=== PATIENT | male | born 1975 | race Caucasian/White ===

== ENCOUNTER 2017-03-23 19:30 | Emergency (ER) | payer SELFPAY ==
[2017-03-23] MEDS ORDERED: Ibuprofen 800 MG TAB ONE (19:40)
--- NOTE | 2017-03-23 20:15 | RAD ---
PA AND LATERAL CHEST: 03/23/17 HISTORY: Cough and fever. Heart size and mediastinum are within normal limits. The lungs are clear of infiltrates. No significa nt bony findings. IMPRESSION: No active intrathoracic disease. POS: [facility]
[2017-03-23 21:53] LABS: ALT (SGPT) 91 U/L (8-55); AST (SGOT) 91 U/L (5-34); Alkaline Phosphatase 60 U/L (40-150); Anion Gap 17 mmol/L (10-20); BUN (Urea Nitrogen) 14 mg/dL (8.9-20.6); Bilirubin, Total 0.7 mg/dL (0.2-1.2); Calc. Creatinine Clearance 0 mL/min (70-130); Calcium 9.5 mg/dL (7.8-10.44); Carbon Dioxide 22 mmol/L (22-29); Chloride 100 mmol/L (98-107); Estimated GFR-MDRD 80; Globulin 3.3 g/dL (2.4-3.5); Glucose 99 mg/dL (70-105); Potassium 3.9 mmol/L (3.5-5.1); Protein, Total 7.3 g/dL (6.0-8.3); Sodium 135 mmol/L (136-145)
[2017-03-23 21:59] LABS: #Lymphocytes 0.4 thou/uL (1.20-3.40); #Monocytes 0.5 thou/uL (0.11-0.59); #Neutrophils 3.1 thou/uL (1.40-6.50); %Basophils 0.6 % (0.0-1.0); %Eosinophils 0.1 % (0.0-10.0); %Monocytes 12.9 % (0.0-10.0); %Neutrophils 76.4 % (42.0-75.0); Hemoglobin 15.5 g/dL (14.0-18.0); MDiff Complete? YES; Macrocytosis SLIGHT = 6-15 cells (100X) (0-5/hpf); Mean Corpuscular HGB CONC 33.8 g/dL (32.0-36.0); Mean Corpuscular Hemoglobin 34.2 pg (27.0-31.0); Mean Platelet Volume 7.3 fL (7.4-10.4); PLT Morphology Comment Appears Decreased; Platelet Count 99 thou/uL (130-400); RBC Distribution Width 11.4 % (11.5-14.5); Red Blood Cell (RBC) Count 4.52 mill/uL (4.70-6.10)
== END 2017-03-24 00:03 | disposition home or self-care (01) ==
LOC: ERS 19:30
DX: J06.9 Acute upper respiratory infection, unspecified (principal); J45.909 Unspecified asthma, uncomplicated; F17.210 Nicotine dependence, cigarettes, uncomplicated; Z71.6 Tobacco abuse counseling
CPT/HCPCS: 71046; 80053; 85025; 94760; 96360; 99406

== ENCOUNTER 2021-03-13 13:29 | Outpatient (CLI) | payer OTHER | END 2021-03-13 13:30 | disposition home or self-care (01) | LOC: SCSRAD 13:29 | PROVIDERS: ATTEND Family Medicine | DX: R05.9 Cough, unspecified (principal) | CPT/HCPCS: 71046 ==

== ENCOUNTER 2024-09-24 09:32 | Inpatient (IN) | payer OTHER ==
[2024-09-24 11:10] LABS: #Basophils 0.06 10x3/uL (0.0-0.2); #Eosinophils 0.03 10x3/uL (0.0-0.7); #Monocytes 0.50 10x3/uL (0.11-0.59); #Neutrophils 4.61 10x3/uL (1.40-6.50); %Basophils 1.0 % (0.0-1.0); %Eosinophils 0.5 % (0.0-10.0); %Lymphocytes 14.5 % (21.0-51.0); %Monocytes 8.2 % (0.0-10.0); %Neutrophils 75.3 % (42.0-75.0); Hematocrit 46.6 % (42.0-52.0); Hemoglobin 15.8 g/dL (14.0-18.0); Mean Corpuscular Hemoglobin 32.2 pg (27.0-31.0); Mean Corpuscular Volume 95.1 fL (78.0-98.0); Platelet Count 60 10x3/uL (130-400); Red Blood Cell (RBC) Count 4.90 mill/uL (4.70-6.10); White Blood Cell (WBC) Count 6.12 10x3/uL (4.8-10.8)
[2024-09-24 11:15] LABS: ALT (SGPT) 80 U/L (Less than 45); AST (SGOT) 190 U/L (11-34); Albumin 3.1 g/dL (3.1-4.5); Alkaline Phosphatase 106 U/L (40-110); Anion Gap 16 mmol/L (10-20); BUN (Urea Nitrogen) 9 mg/dL (8.9-20.6); Bilirubin, Total 1.3 mg/dL (0.3-1.2); Calc. Creatinine Clearance 0 mL/min (70-130); Calcium 8.3 mg/dL (7.8-10.44); Carbon Dioxide 26 mmol/L (22-29); Chloride 95 mmol/L (98-107); Globulin 4.3 g/dL (2.4-3.5); Glucose 88 mg/dL (70-105); Potassium 4.3 mmol/L (3.5-5.1); Sodium 133 mmol/L (136-145)
[2024-09-24 11:36] LABS: Platelet Adequacy Comment Platelets Decreased
[2024-09-24 11:48] LABS: INR-International Normal Ratio 1.1; Lipase 109 U/L (8-78); Magnesium 1.5 mg/dL (1.6-2.6); Prothrombin Time 13.8 sec (12.0-14.7)
[2024-09-24 11:49] LABS: PTT 27.3 sec (22.9-36.1)
[2024-09-24] MEDS ORDERED: Pantoprazole 80 MG, Admixture Fee 1 EACH in Sodium Chloride 0.9% 100 ML IVPB SCH ×2 (12:00→15:25)
[2024-09-24] MEDS ORDERED: Octreotide Acetate 1,250 MCG in Sodium Chloride 0.9% 250 ML 250 ML IVPB SCH (12:00)
[2024-09-24] MEDS ORDERED: Iopamidol-370 76% 500 ML MDV (1 ML CHARGE) ONE (12:03)
[2024-09-24] MEDS ORDERED: Ondansetron PF 4 MG/2 ML Vial ONE (12:46)
[2024-09-24] MEDS ORDERED: Pantoprazole 40 MG VIAL ONE (12:47)
[2024-09-24] MEDS ORDERED: Magnesium 2 GM/50 ML BAG (IN WATER) ONE (12:47)
[2024-09-24] MEDS ORDERED: cefTRIAXone (ROCEPHIN) 2 GM VIAL ONE (12:47)
[2024-09-24] MEDS ORDERED: Octreotide Acetate 1,000 mcg/ml MDV ONE (14:18)
[2024-09-24] MEDS ORDERED: Sodium Chloride 0.9% 250 ML BAG (BAXTER) ONE (14:18)
[2024-09-24] MEDS ORDERED: Ondansetron PF 4 MG/2 ML Vial IVP PRN (15:20)
[2024-09-24] MEDS ORDERED: Electrolyte Replacement Protocol 1 EACH FS SCH (15:30)
[2024-09-24 19:25] LABS: Bacteria/HPF None Seen HPF (None Seen); CAUTI Indications for Culture Dysuria,urgency,freq; Glucose, Urine (Dipstick) Normal (Negative); Leukocyte Negative Leu/uL (Negative); Protein, Urine (Dipstick) Negative (Neg-Trace); RBC/HPF None Seen HPF (0-3); Specific Gravity, Urine 1.038 (1.002-1.036); WBC/HPF 0-3 HPF (0-3)
[2024-09-24 19:38] LABS: Urine Culture Reflex No No
[2024-09-24] MEDS: Pantoprazole 40 MG DR.TAB PO SCH (22:00)
[2024-09-24 22:14] VITALS: BMI 25.4
[2024-09-25 01:26] LABS: Cocaine Metabolite Screen Negative (Negative); THC/Cannabinoid Screen Negative (Negative); Tricyclic Screen Negative (Negative)
[2024-09-25] MEDS: hydrALAZINE 20 MG/ML VIAL SLOW IVP PRN (04:53)
[2024-09-25 04:55] VITALS: BP 157/103
[2024-09-25 05:15] LABS: #Basophils Less than 0.03 10x3/uL (0.0-0.2); #Eosinophils 0.10 10x3/uL (0.0-0.7); #Monocytes 0.21 10x3/uL (0.11-0.59); #Neutrophils 1.98 10x3/uL (1.40-6.50); %Basophils 0.7 % (0.0-1.0); %Eosinophils 3.6 % (0.0-10.0); %Lymphocytes 16.2 % (21.0-51.0); %Monocytes 7.6 % (0.0-10.0); %Neutrophils 71.5 % (42.0-75.0); Hematocrit 41.9 % (42.0-52.0); Hemoglobin 14.2 g/dL (14.0-18.0); Mean Corpuscular Hemoglobin 31.8 pg (27.0-31.0); Mean Corpuscular Volume 93.9 fL (78.0-98.0); Platelet Count 45 10x3/uL (130-400); Red Blood Cell (RBC) Count 4.46 mill/uL (4.70-6.10); White Blood Cell (WBC) Count 2.77 10x3/uL (4.8-10.8)
[2024-09-25 05:25] LABS: Anion Gap 15 mmol/L (10-20); BUN (Urea Nitrogen) 6 mg/dL (8.9-20.6); Calc. Creatinine Clearance 180 mL/min (70-130); Calcium 8.1 mg/dL (7.8-10.44); Carbon Dioxide 28 mmol/L (22-29); Chloride 95 mmol/L (98-107); Glucose 115 mg/dL (70-105); Magnesium 1.5 mg/dL (1.6-2.6); Potassium 4.2 mmol/L (3.5-5.1); Sodium 134 mmol/L (136-145)
[2024-09-25] MEDS: Magnesium 2 GM/50 ML(in water) 2 GM in Premix 1 BAG IVPB SCH (06:35)
[2024-09-25] MEDS: Multivit, Therapeutic 1 TAB PO SCH (08:52)
[2024-09-25] MEDS: Folic Acid 1 MG TAB PO SCH (08:52)
[2024-09-25] MEDS: Mupirocin 1 GM TUBE TP SCH (08:52)
[2024-09-25 08:57] LABS: Lipase 84 U/L (8-78)
[2024-09-25 08:59] LABS: ALT (SGPT) 67 U/L (Less than 45); AST (SGOT) 166 U/L (11-34); Albumin 2.8 g/dL (3.1-4.5); Alkaline Phosphatase 93 U/L (40-110); Bilirubin, Direct 0.9 mg/dL (0.1-0.3); Bilirubin, Total 1.6 mg/dL (0.3-1.2)
[2024-09-25] MEDS: Acetaminophen 325 MG TAB PO PRN (13:32)
[2024-09-26 05:40] LABS: #Basophils Less than 0.03 10x3/uL (0.0-0.2); #Eosinophils 0.06 10x3/uL (0.0-0.7); #Monocytes 0.37 10x3/uL (0.11-0.59); #Neutrophils 2.18 10x3/uL (1.40-6.50); %Basophils 0.6 % (0.0-1.0); %Eosinophils 1.8 % (0.0-10.0); %Lymphocytes 22.6 % (21.0-51.0); %Monocytes 10.9 % (0.0-10.0); %Neutrophils 63.8 % (42.0-75.0); Hematocrit 39.1 % (42.0-52.0); Hemoglobin 13.5 g/dL (14.0-18.0); Mean Corpuscular Hemoglobin 31.8 pg (27.0-31.0); Mean Corpuscular Volume 92.2 fL (78.0-98.0); Platelet Count 50 10x3/uL (130-400); Red Blood Cell (RBC) Count 4.24 mill/uL (4.70-6.10); White Blood Cell (WBC) Count 3.41 10x3/uL (4.8-10.8)
[2024-09-26 05:48] LABS: ALT (SGPT) 68 U/L (Less than 45); AST (SGOT) 158 U/L (11-34); Albumin 2.7 g/dL (3.1-4.5); Alkaline Phosphatase 104 U/L (40-110); Anion Gap 11 mmol/L (10-20); BUN (Urea Nitrogen) 8 mg/dL (8.9-20.6); Bilirubin, Total 1.9 mg/dL (0.3-1.2); Calc. Creatinine Clearance 173 mL/min (70-130); Calcium 8.1 mg/dL (7.8-10.44); Carbon Dioxide 26 mmol/L (22-29); Chloride 96 mmol/L (98-107); Globulin 3.7 g/dL (2.4-3.5); Glucose 108 mg/dL (70-105); Magnesium 1.7 mg/dL (1.6-2.6); Potassium 3.4 mmol/L (3.5-5.1); Sodium 130 mmol/L (136-145)
[2024-09-26] MEDS: Magnesium 2 GM/50 ML(in water) 2 GM in Premix 1 BAG IVPB SCH (07:39)
[2024-09-27 04:55] LABS: #Basophils Less than 0.03 10x3/uL (0.0-0.2); #Eosinophils 0.13 10x3/uL (0.0-0.7); #Monocytes 0.25 10x3/uL (0.11-0.59); #Neutrophils 1.56 10x3/uL (1.40-6.50); %Basophils 0.8 % (0.0-1.0); %Eosinophils 5.0 % (0.0-10.0); %Lymphocytes 23.9 % (21.0-51.0); %Monocytes 9.7 % (0.0-10.0); %Neutrophils 60.2 % (42.0-75.0); Hematocrit 42.1 % (42.0-52.0); Hemoglobin 14.5 g/dL (14.0-18.0); Mean Corpuscular Hemoglobin 31.9 pg (27.0-31.0); Mean Corpuscular Volume 92.5 fL (78.0-98.0); Platelet Count 52 10x3/uL (130-400); Red Blood Cell (RBC) Count 4.55 mill/uL (4.70-6.10); White Blood Cell (WBC) Count 2.59 10x3/uL (4.8-10.8)
[2024-09-27 04:56] LABS: ALT (SGPT) 76 U/L (Less than 45); AST (SGOT) 163 U/L (11-34); Albumin 2.7 g/dL (3.1-4.5); Alkaline Phosphatase 97 U/L (40-110); Anion Gap 15 mmol/L (10-20); BUN (Urea Nitrogen) 5 mg/dL (8.9-20.6); Bilirubin, Total 1.7 mg/dL (0.3-1.2); Calc. Creatinine Clearance 190 mL/min (70-130); Calcium 8.5 mg/dL (7.8-10.44); Carbon Dioxide 24 mmol/L (22-29); Chloride 99 mmol/L (98-107); Globulin 3.8 g/dL (2.4-3.5); Glucose 88 mg/dL (70-105); Potassium 3.6 mmol/L (3.5-5.1); Sodium 134 mmol/L (136-145)
[2024-09-27] MEDS: Thiamine 100 MG TAB PO SCH (15:22)
[2024-09-28 04:25] LABS: #Basophils Less than 0.03 10x3/uL (0.0-0.2); #Eosinophils 0.06 10x3/uL (0.0-0.7); #Monocytes 0.37 10x3/uL (0.11-0.59); #Neutrophils 2.05 10x3/uL (1.40-6.50); %Basophils 0.6 % (0.0-1.0); %Eosinophils 1.9 % (0.0-10.0); %Lymphocytes 21.8 % (21.0-51.0); %Monocytes 11.5 % (0.0-10.0); %Neutrophils 63.9 % (42.0-75.0); Hematocrit 40.9 % (42.0-52.0); Hemoglobin 13.9 g/dL (14.0-18.0); Mean Corpuscular Hemoglobin 31.7 pg (27.0-31.0); Mean Corpuscular Volume 93.4 fL (78.0-98.0); Platelet Count 82 10x3/uL (130-400); Red Blood Cell (RBC) Count 4.38 mill/uL (4.70-6.10); White Blood Cell (WBC) Count 3.21 10x3/uL (4.8-10.8)
[2024-09-28 04:30] LABS: ALT (SGPT) 78 U/L (Less than 45); AST (SGOT) 148 U/L (11-34); Albumin 2.7 g/dL (3.1-4.5); Alkaline Phosphatase 110 U/L (40-110); Anion Gap 11 mmol/L (10-20); BUN (Urea Nitrogen) 6 mg/dL (8.9-20.6); Bilirubin, Total 1.3 mg/dL (0.3-1.2); Calc. Creatinine Clearance 170 mL/min (70-130); Calcium 8.6 mg/dL (7.8-10.44); Carbon Dioxide 25 mmol/L (22-29); Chloride 103 mmol/L (98-107); Globulin 3.9 g/dL (2.4-3.5); Glucose 89 mg/dL (70-105); Potassium 4.1 mmol/L (3.5-5.1); Sodium 135 mmol/L (136-145)
[2024-09-28 07:52] VITALS: TEMP 98.4
== END 2024-09-28 11:59 | disposition left against medical advice (07) | DRG 894 ==
LOC: ERS 09:32 → ERHOLD 15:33 → OBSVTOIN 19:40 → CCU 20:26 → IMCU/EMU 09-26 16:54
PROVIDERS: ADMIT Internal Medicine; ATTEND Internal Medicine
DX: F10.231 Alcohol dependence with withdrawal delirium (principal); G92.9 Unspecified toxic encephalopathy; K92.2 Gastrointestinal hemorrhage, unspecified; E87.20 Acidosis, unspecified; E87.1 Hypo-osmolality and hyponatremia; I10 Essential (primary) hypertension; K70.10 Alcoholic hepatitis without ascites; E83.42 Hypomagnesemia; D69.6 Thrombocytopenia, unspecified; J44.9 Chronic obstructive pulmonary disease, unspecified; E88.89 Other specified metabolic disorders; E87.6 Hypokalemia; E88.09 Other disorders of plasma-protein metabolism, not elsewhere classified; F10.221 Alcohol dependence with intoxication delirium; Z98.890 Other specified postprocedural states; Z72.0 Tobacco use; Z86.19 Personal history of other infectious and parasitic diseases; Z79.899 Other long term (current) drug therapy
CPT/HCPCS: 36415; 71045; 74177; 80048; 80053; 80076; 80306; 80307; 81001; 82140; 82274; 83605; 83690; 83735; 83880; 84100; 85025; 85610; 85730; 86850; 86900; 86901; 93005; 96374; 96375; J0360; J0696; J2060; J2354; J2405; J2470; J3411; J3475; J7050; J7120; Q9967